=== PATIENT | female | born 2000 ===

== ENCOUNTER 2024-05-07 13:51 | Outpatient (CLI) | payer OTHER, SELFPAY ==
--- NOTE | ~2024-05-07 | XR_ITS ---
XR hand RT min 3V Ordering provider: So Malone, [employer]ER History: . pain in joints of right hand X 1 DY . Comparison: None. FINDINGS: BONES: No acute fracture or dislocation. JOINT SPACES: Normal. SOFT TISSUES: Normal. IMPRESSION: No acute osseous abnormality right hand. Reviewed, dictated and finalized at location A.
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
--- OUTSIDE RECORDS SUMMARY | 2024-05-07 16:36 | XMS_ITS | Clinical Summary ---
Author Organization [facility] Address [address] [place] [address] Care Team Providers Care Placement Director Name Role Phone Keeley Stone ANNE-MARIE-LOU Primary Care Provider + Source Comments [facility],non-owned Affiliates and Associated Physician Practices is amultiple site organization consisting of ambulatory clinics and hospital sitesin [place], [place], [place] and [place]. This disclosure is being madepursuant to the Care Everywhere program and may not contain all information available regarding this patient. Last updated 17.[facility] Allergies No known active allergies Medications * Be aware that medications may not be up to date on this document. Alwaysverify current medications with the patient. Medication Sig Dispensed Refills Start Date End Date Status ibuprofen (MOTRIN) 400 MG tablet Take 1 tablet by mouth every 6 hours as needed for Pain 20 tablet 10/16/2017 Active cyclobenzaprine (FLEXERIL) 5 MG tablet Take 1 tablet by mouth 3 times daily as needed (muscle spasm) 9 tablet 10/16/2017 Active Active Problems Problem Noted Date Diagnosed Date Right hip pain 01/23/2015 Hamstring sprain 01/23/2015 Family History Medical History Relation Name Comments Diabetes Father Diabetes Maternal Grandmother Menstrual issues Mother irregular Relation Name Status Comments Father Maternal Grandmother Mother Social History Tobacco Use Types Packs/Day Years Used Date Smoking Tobacco: Never Smokeless Tobacco: Never Alcohol Use Standard Drinks/Week Comments No 0 (1 standard drink = 0.6 oz pur e alcohol) Sex and Gender Information Value Date Recorded Sex Assigned at Not on file Gender Identity Not on file Sexual Orientation Not on file Last Filed Vital Signs Vital Sign Reading Time Taken Comments Blood Pressure 94/58 10/16/2017 1:45 AM CDT Pulse 80 10/16/2017 1:45 AM CDT Temperature 36.7 C (98 F) 10/16/2017 1:45 AM CDT Respiratory Rate 20 10/16/2017 1:45 AM CDT Oxygen Saturation - - Inhaled Oxygen Concentration - - Weight 54.8 kg (120 lb 13 oz) 10/15/2017 11:11 P M CDT Height 150 cm (4' 11.06 ) 10/15/2017 11:11 PM CD T Body Mass Index 24.36 10/15/2017 11:11 PM CDT Plan of Treatment Health Maintenance Due Date Last Done Comments PAP SMEAR 2002 HIV SCREENING 2017 HPV VACCINE (1 - 3-dose series) 2017 CHLAMYDIA/GONORRHEA SCREENING 2018 MENINGOCOCCAL (Group B) VACC INE SHARED DECISION-MAKING (1 of 2 - Standard) 2018 HEPATITIS C SCREENING 05/20/2020 DTAP/TDAP/TD VACCINES (1 - Tdap) 2021 HEPATITIS B VACCINE (1 of 3 - 19+ 3-dose series) 2021 COVID-19 VACCINE (1 - 2023-2 5 season) 2023 INFLUENZA VACCINE (#1) 2023 DEPRESSION SCREENING 02/14/2024 ZOSTER VACCINE (1 of 2) 2052 HIB VACCINE Aged Out No longer eligi ble based on patient's age to complete this topic MENINGOCOCCAL GROUPS A/C/Y/W VACCINE Aged Out No longer eligible b ased on patient's age to complete this topic PNEUMOCOCCAL VACCINE Aged Out No long er eligible based on patient's age to complete this topic Care Teams Placement Director Relationship Specialty Start Date End Date Keeley Stone, [employer]PERVISOR-INGREDIENT [employer]ER HEL[employer] [address] [place] [id number] PCP - General 04/27/11
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
== END 2024-05-07 13:52 | disposition home or self-care (01) ==
PROVIDERS: PCP Nurse Practitioner; Visit Provider Nurse Practitioner
DX: M25.541 Pain in joints of right hand (principal)
CPT/HCPCS: 73110; 73130